=== PATIENT | female | born 1995 | race Caucasian/White ===

== ENCOUNTER 2017-05-14 23:09 | Emergency (ER) | payer MEDICAID ==
--- NOTE | 2017-05-14 23:24 | C.PDOC ---
History Of Present Illness 21 yo female come in for evaluation of Right ankle pain, swelling gradually developed for past week. Pt reports, " possible twisted my ankle, while wearing heels week ago". Pt also reports, noted some blister over heel area as well. Otherwise, pt fever, chills, denies deformity, weakness, sensory or vascular deficits to RLE. Ambulate to Ed for evaluation, not in any apparent distress. Time Seen by Provider: 05/14/17 23:20 Chief Complaint (Nursing): Lower Extremity Problem/Injury History Per: Patient Past Medical History Reviewed: Historical Data, Nursing Documentation, Vital Signs Vital Signs: Last Vital Signs Temp 99.3 F 05/14/17 23:17 Pulse 99 H 05/14/17 23:17 Resp 18 05/14/17 23:17 BP 123/70 05/14/17 23:17 Pulse Ox 98 05/15/17 00:14 - Medical History PMH: No Chronic Diseases Family History: States: No Known Family Hx - Social History Hx Alcohol Use: Yes Hx Substance Use: No - Immunization History Hx Tetanus Toxoid Vaccination: No Hx Influenza Vaccination: No Hx Pneumococcal Vaccination: No Review Of Systems Except As Marked, All Systems Reviewed And Found Negative. Constitutional: Negative for: Fever, Chills ENT: Negative for: Throat Pain Musculoskeletal: Positive for: Foot Pain Skin: Positive for: Lesions Neurological: Negative for: Weakness, Numbness Physical Exam - Physical Exam Appears: Well, Non-toxic, No Acute Distress Skin: Normal Color, Warm Extremity: Normal ROM (RLE), Tenderness (tenderness over posterior aspect Right ankle with diffuse edema, erythema extend up to lateral malleolus. Small close bulae/blister 1cm diameter w/clear liquid over posterior aspect Right ankle. NO proximal streaking.), No Calf Tenderness (Right), Capillary Refill (less than 2sec to Right foot), No Deformity, Swelling (mild over Right lateral malleolus) Neurological/Psych: Oriented x3, Normal Speech, Normal Motor, Normal Sensation, Normal Reflexes ED Course And Treatment O2 Sat by Pulse Oximetry: 98 Pulse Ox Interpretation: Normal - Other Rad Right ankle X-Ray: Interpreted by Me, Viewed By Me Interpretation: no acute fx or dislocation Right foot X-Ray: Interpreted by Me, Viewed By Me Interpretation: no acute fx or dislocation Progress Note: On re-eavl, pt is afebrile, hemodynamicaly stable. Non-toxic. Right ankle: exam c/w edema, erythema over posterior aspect Right ankle and lateral malleolus with middle blister. FAROM, no neurovascular deficits. xray review and appears noraml. Pt has clinical findings c/w ankle contusion/ cellulitis. Pt advised. ref. to F/u with PMD in 2 days for re-eavl. return to ED if any worsening or new changes. Disposition Counseled Patient/Family Regarding: Studies Performed, Diagnosis, Need For Followup, Rx Given - Disposition Referrals: Kajal Sparks MD [Medical Doctor] - Disposition: HOME/ ROUTINE Disposition Time: 00:11 Condition: STABLE Additional Instructions: Arm salty water foot soaks daily Take antibiotic as prescribed Follow up with PMD in 2 days for re-evaluation. Return to ED if any worsening or new changes. Prescriptions: Doxycycline Hyclate [Doryx] 100 mg PO BID #14 cap Instructions: Ankle Sprain (ED), Cellulitis (ED) - Clinical Impression Clinical Impression: Joint swelling, Cellulitis
[2017-05-15 00:38] VITALS: BP 106/69; PULSE 85; RESP 20; TEMP 98.3; O2SAT 97
--- NOTE | 2017-05-15 11:10 | RAD ---
PROCEDURE: Right Ankle Radiographs. HISTORY: Pain [place] COMPARISON: None FINDINGS: BONES: Bone alignment and mineralization are normal. No acute fracture or bone destruction. JOINTS: Normal. No osteoarthritis. Ankle mortise maintained. Talar dome intact SOFT TISSUES: There is moderate lateral soft tissue swelling. OTHER FINDINGS: None. IMPRESSION: No acute fracture or dislocation. Moderate lateral soft tissue swelling.
--- NOTE | 2017-05-15 11:12 | RAD ---
PROCEDURE: Right Foot Radiographs. HISTORY: Pain COMPARISON: None. FINDINGS: BONES: Bone alignment and mineralization are normal. No acute fracture. JOINTS: Normal. SOFT TISSUES: Normal. OTHER FINDINGS: None. IMPRESSION: No acute fracture or dislocation.
== END 2017-05-15 00:38 | disposition home or self-care (01) ==
LOC: C.ER 23:09
DX: L03.115 Cellulitis of right lower limb (principal); M25.471 Effusion, right ankle